=== PATIENT | male | born 1950 | race Caucasian/White ===

== ENCOUNTER 2017-09-08 08:58 | Outpatient (CLI) | payer MEDICARE, BC ==
--- NOTE | 2017-09-08 10:07 | RAD ---
ABDOMEN ONE VIEW: History: Abdominal pain. FINDINGS/IMPRESSION: The bowel gas pattern is unremarkable. No suspicious calcifications are seen. There are degenerative changes in the spine. 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 POS: [facility]
== END 2017-09-08 08:59 | disposition home or self-care (01) ==
LOC: RAD-FRANK 08:58
PROVIDERS: ATTEND Nurse Practitioner Family
DX: R10.9 Unspecified abdominal pain (principal); M47.899 Other spondylosis, site unspecified; R93.7 Abnormal findings on diagnostic imaging of other parts of musculoskeletal system
CPT/HCPCS: 74018

== ENCOUNTER 2025-05-27 14:05 | Outpatient (CLI) | payer MEDICARE, BC | END 2025-05-27 14:06 | disposition home or self-care (01) | LOC: ULT 14:05 | PROVIDERS: ATTEND Urology | DX: Z87.442 Personal history of urinary calculi (principal) | CPT/HCPCS: 76770 ==